=== PATIENT | female | born 1980 | race Caucasian/White ===

== ENCOUNTER 2016-07-29 13:09 | Emergency (ER) | payer BC ==
[2016-07-29 14:15] LABS: Hematocrit 36 % (35-47); Hemoglobin 11.2 g/dl (12.0-16.0); Mean Corpuscular HGB Conc 31 g/dl (31-36); Mean Corpuscular Hemoglobin 24 pg (27-31); Mean Corpuscular Volume 77 fL (80-97); Mean Platelet Volume 9 um3 (7.4-10.4); Red Cell Distribution Width 16 % (10.5-15); White Blood Count 10.7 10^3/ul (3.5-10.8)
[2016-07-29 14:30] LABS: Albumin 4.2 g/dL (3.2-5.2); BUN/Creatinine Ratio 10.9 (8-20); Calcium 9.2 mg/dL (8.6-10.3); Globulin 2.6 g/dL (2-4); Potassium 3.7 mmol/L (3.5-5.0); Total Bilirubin 0.5 mg/dL (0.2-1.0); Total Protein 6.8 g/dL (6.4-8.9)
[2016-07-29] MEDS ORDERED: Iohexol 350* (CONTRAST) 500 ML MDV IV ONE (14:54)
--- NOTE | 2016-07-29 15:31 | RAD ---
INDICATION: Mid chest pain. History of PE. Noncompliant with medical therapy. COMPARISON: No prior exams available for comparison on the [facility] PACS. TECHNIQUE: Multidetector CT images were obtained from the lung apices to the upper abdomen with 82 mL Omnipaque 350 IV contrast. Pulmonary angiogram protocol. Multiplanar reformation including with maximum intensity projection. REPORT: Minimal bibasilar atelectasis. Negative for pleural effusion or pneumothorax. Upper normal heart size. Negative for pericardial effusion. Normal diameter thoracic aorta. Motion artifact mildly degrades image quality for the CT pulmonary angiogram. No filling defects are identified from the main to the subsegmental pulmonary arteries to indicate presence of a pulmonary embolism. Images through the upper abdomen are remarkable for prior cholecystectomy. Negative for focal osseous lesions. IMPRESSION: Mildly limited CT pulmonary angiogram due to motion artifact without compelling evidence for pulmonary embolism. Minimal bibasilar subsegmental atelectasis.
[2016-07-29 16:11] LABS: Urine Bilirubin Negative (Negative); Urine Glucose Negative (Negative); Urine Nitrite Negative (Negative)
[2016-07-29 18:10] VITALS: BP 113/78
--- NOTE | 2016-07-31 00:56 | ED ---
Gianluca Mobley Alok, scribed for Lorenzo Sanders MD on 07/29/16 at 1350 . HPI Chest Pain - HPI Summary HPI Summary: 35F presents with "light chest discomfort" at the mid-sternal since 0400, constant though waxing and waning in intensity. Pt states that this pain woke her up last night, and was initially thought to be an anxiety attack until it did not subside on its own. Pt also states that her pain feels different than GERD. Currently her pain is at a 6/10 in severity. Pt tried taking ibuprofen at 0930 with no alleviation. Pt states her chest discomforts worsens when in supine position and improves when sitting up. Pt also notes slight SOB described as "extra work" to inhale. Pt also notes a back discomfort earlier. Pt denies fever, chills, or diaphoresis. Pt denies cough, throat burning, throat pain, or sour taste in her mouth. Pt denies leg pain, arm pain, or shoulder pain. Pt denies vomit. PMHx includes h/o PE 2011 which she was prescribed Coumadin and then switched to Xarelto. Pt has not taken her Xarelto for the past 6 months. PMHx also includes h/o anxiety for which she takes 10mg Lexapro and GERD for which she takes 40mg of protonics. Pt drinks ETOH occasionally had a 3-4 drinks of ETOH last night before her CP as well as pineapple juice which may have contributed. - History of Current Complaint Chief Complaint: EDChestPainROMI Time Seen by Provider: 07/29/16 13:17 Hx Obtained From: Patient Onset/Duration: Started Hours Ago, Atraumatic, Still Present Time of Onset: 04:00 Timing: Constant Initial Severity: Moderate Current Severity: Moderate Pain Intensity: 6 Pain Scale Used: 0-10 Numeric Chest Pain Location: Discrete at:, Mid Sternal Chest Pain Radiates: No Character: Other: - "slight chest discomfort" Aggravating Factor(s): Position - Supine Alleviating Factor(s): Position - Sitting up Associated Signs and Symptoms: Positive: Chest Pain, Shortness of Breath - slight, Back Pain - subsided since. Negative: Fever, Cough, Vomiting - Allergy/Home Medications Allergies/Adverse Reactions: Allergies Allergy/AdvReac Type Severity Reaction Status Date / Time No Known Allergies Allergy Verified 05/10/14 09:48 PMH/Surg Hx/FS Hx/Imm Hx Respiratory History: Reports: Hx Pulmonary Embolism GI History: Reports: Hx Gastroesophageal Reflux Disease Psychiatric History: Reports: Hx Anxiety - Surgical History Surgery Procedure, Year, and Place: CHOLECYSTECTOMY 01/01, CSECTION X 3 Infectious Disease History: No Infectious Disease History: Denies: Traveled Outside the [place] in Last 30 Days - Family History Known Family History: Positive: Hypertension Negative: Cardiac Disease - Social History Occupation: Employed Full-time Lives: With Family Alcohol Use: Rare Hx Substance Use: No Substance Use Type: Reports: None Hx Tobacco Use: No Smoking Status (MU): Never Smoked Tobacco Review of Systems Negative: Fever, Chills Negative: Erythema Negative: Sore Throat, Other - Sour taste in mouth Positive: Chest Pain Positive: Shortness Of Breath. Negative: Cough Negative: Abdominal Pain, Vomiting, Nausea Negative: dysuria, hematuria Positive: Other - back discomfort. Negative: Myalgia, Edema Neurological: Other - Negative: Dizziness Negative: Headache All Other Systems Reviewed And Are Negative: Yes Physical Exam - Summary Physical Exam Summary: [Female nurse Kvng present for exam] Constitutional: Well-developed, Well-nourished, Alert. (-) Distressed Skin: Warm, Dry HENT: Normocephalic; Atraumatic Eyes: Conjunctiva normal Neck: Musculoskeletal ROM normal neck. (-) JVD, (-) Stridor, (-) Tracheal deviation Cardio: Rhythm regular, rate normal, Heart sounds normal; Intact distal pulses; The pedal pulses are 2+ and symmetric. Radial pulses are 2+ and symmetric. (-) Murmur Pulmonary/Chest wall: Effort normal. (-) Respiratory distress, (-) Wheezes, (-) Rales. Tenderness at inferior aspect of the sternal. No costo-chondral tenderness. Chest pain exactly reproducible with palpation Abd: Soft, (-) Tenderness, (-) Distension, (-) Guarding, (-) Rebound Musculoskeletal: (-) Edema Lymph: (-) Cervical adenopathy Neuro: Alert, Oriented x3 Psych: Mood and affect Normal Triage Information Reviewed: Yes Vital Signs On Initial Exam: Initial Vitals Temp Pulse Resp BP Pulse Ox 98.3 F 73 20 130/85 100 07/29/16 13:10 07/29/16 13:10 07/29/16 13:10 07/29/16 13:10 07/29/16 13:10 Vital Signs Reviewed: Yes Diagnostics - Vital Signs Vital Signs Temp Pulse Resp BP Pulse Ox 07/29/16 13:13 98.3 F 72 20 130/85 98 07/29/16 13:10 98.3 F 73 20 130/85 100 - Laboratory Result Diagrams: 07/29/16 14:00 07/29/16 14:00 Lab Statement: Any lab studies that have been ordered have been reviewed, and results considered in the medical decision making process. - CT Chest/Thorax CTA CT Interpretation: Positive (See Comments) - IMPRESSION: Mildly limited CT pulmonary angiogram due to motion artifact without compelling evidence for pulmonary embolism. Minimal bibasilar subsegmental atelectasis. CT Interpretation Completed By: Radiologist - EKG 1321 Cardiac Rate: NL - 65 bpm EKG Rhythm: Sinus Rhythm EKG Interpretation: NO STEMI Re-Evaluation - Re-Evaluation First Eval Re-Evaluation Time: 16:12 Change: Improved Comment: Discussed pt lab and test results. Pt chest pain has eased up somewhat. Chest Pain Course/Dx - Diagnoses Provider Diagnoses: Chest pain, unspecified Discharge - Discharge Plan Condition: Stable Disposition: HOME Patient Education Materials: Chest Pain (ED) Referrals: Jessica Maxwell MD [Primary Care Provider] - 2 Days Additional Instructions: Please return to the emergency department for any new worsening or persisting symptoms. The documentation as recorded by the Gianluca kearns Alok accurately reflects the service I personally performed and the decisions made by , Lorenzo Sanders MD.
== END 2016-07-29 18:24 | disposition home or self-care (01) ==
LOC: ED 13:09
DX: R07.9 Chest pain, unspecified (principal); R06.02 Shortness of breath; M54.9 Dorsalgia, unspecified
CPT/HCPCS: 36415; 71275; 80053; 81003; 83605; 84484; 85025; 85610; 85730; 93005; 99283; Q9967

== ENCOUNTER 2018-08-14 21:34 | Emergency (ER) | payer SELFPAY ==
[2018-08-14 21:44] VITALS: BP 150/82
[2018-08-14] MEDS ORDERED: Polymyx/Trimethoprim OPTH* 10 ML BTL LEFT EYE ONE (21:50)
--- NOTE | 2018-08-14 21:56 | UC ---
Eye Complaint HPI - HPI Summary HPI Summary: 37 yo female with left eye redness and discharge x 1 day no pain or photophobia - History of Current Complaint Chief Complaint: UCEye Stated Complaint: LEFT EYE ISSUE Time Seen by Provider: 08/14/18 21:42 Hx Obtained From: Patient Hx Last Menstrual Period: 08/02/18 Onset/Duration: Gradual Onset Timing: Constant Severity Initially: Mild Severity Currently: Mild Pain Intensity: 0 Pain Scale Used: 0-10 Numeric Location of Injury: Conjunctiva Aggravating Factor(s): Nothing Alleviating Factor(s): Nothing Associated Signs And Symptoms: Positive: Drainage (Purulent) - Risk Factors Penetrating Injury Risk Factor: Negative Globe Rupture Risk Factors: Negative Acute Glaucoma Risk Factors: Negative Optic Artery Occlusion Risk Factors: Negative - Allergies/Home Medications Allergies/Adverse Reactions: Allergies Allergy/AdvReac Type Severity Reaction Status Date / Time No Known Allergies Allergy Verified 08/14/18 21:44 Home Medications: Home Medications Levothyroxine Sodium 50 mcg PO DAILY 08/14/18 [History Confirmed 08/14/18] PMH/Surg Hx/FS Hx/Imm Hx Previously Healthy: Yes - Surgical History Surgical History: Yes Surgery Procedure, Year, and Place: CHOLECYSTECTOMY 01/01, CSECTION X 3 - Family History Known Family History: Positive: Hypertension Negative: Cardiac Disease - Social History Alcohol Use: Rare Substance Use Type: None Smoking Status (MU): Never Smoked Tobacco Review of Systems All Other Systems Reviewed And Are Negative: Yes Constitutional: Positive: Negative Skin: Positive: Negative Eyes: Positive: Drainage, Eye Redness ENT: Positive: Negative Respiratory: Positive: Negative Cardiovascular: Positive: Negative Gastrointestinal: Positive: Negative Genitourinary: Positive: Negative Motor: Positive: Negative Neurovascular: Positive: Negative Musculoskeletal: Positive: Negative Neurological: Positive: Negative Psychological: Positive: Negative Physical Exam Triage Information Reviewed: Yes Appearance: Well-Appearing, No Pain Distress, Well-Nourished Vital Signs: Initial Vital Signs Temp 97.9 F 08/14/18 21:42 Pulse 72 08/14/18 21:42 Resp 20 08/14/18 21:42 BP 150/82 08/14/18 21:42 Pulse Ox 100 08/14/18 21:42 Vital Signs Reviewed: Yes Eyes: Positive: Conjunctiva Inflamed - L, Discharge - L ENT: Positive: Hearing grossly normal. Negative: Nasal congestion, Nasal drainage, Trismus, Muffled voice, Hoarse voice Neck: Positive: Supple, Nontender, No Lymphadenopathy Respiratory: Positive: Lungs clear, Normal breath sounds, No respiratory distress, No accessory muscle use Cardiovascular: Positive: RRR, No Murmur Musculoskeletal: Positive: ROM Intact, No Edema Neurological: Positive: Alert Psychological Exam: Normal Skin Exam: Normal Eye Complaint Course/Dx - Differential Dx/Diagnosis Provider Diagnosis: Conjunctivitis, right eye Discharge - Sign-Out/Discharge Documenting (check all that apply): Patient Departure All imaging exams completed and their final reports reviewed: No Studies - Discharge Plan Condition: Stable Disposition: HOME Patient Education Materials: Conjunctivitis (ED) Referrals: Jocelynn Fan NP [Primary Care Provider] - 4 Days (if not better) - Billing Disposition and Condition Condition: STABLE Disposition: Home
== END 2018-08-14 22:04 | disposition home or self-care (01) ==
LOC: UCCORT 21:34
DX: H10.9 Unspecified conjunctivitis (principal)
CPT/HCPCS: 99212; G0463

== ENCOUNTER 2019-04-22 08:22 | Emergency (ER) | payer BC ==
[2019-04-22 08:45] VITALS: BP 152/102
--- NOTE | 2019-04-22 09:52 | UC ---
Abdominal Pain Female HPI - HPI Summary HPI Summary: 38 y/o female with 3 days hx of lower abdominal pain pain is cramping , 2 out of 10 , no radiation nothing makes it better or worse + diarrhea , nausea and vomiting, no dysuria, no frequency no flank pain , no fever, + chills - History of Current Complaint Chief Complaint: UCGI Stated Complaint: NAUSEA,VOMITING,DIARRHEA Time Seen by Provider: 04/22/19 08:55 Hx Obtained From: Patient Hx Last Menstrual Period: 08/02/18 Onset/Duration: Gradual Onset, Lasting Days - 3, Still Present Severity Initially: Moderate Severity Currently: Moderate Pain Intensity: 1 Pain Scale Used: 0-10 Numeric Radiates: No Character: Cramping Aggravating Factor(s): Nothing Alleviating Factor(s): Nothing Associated Signs and Symptoms: Positive: Nausea, Vomiting, Diarrhea. Negative: Fever, Cough, Back Pain, Constipation, Blood in Stool, Urinary Symptoms, Decreased Appetite, Vaginal Bleeding Allergies/Adverse Reactions: Allergies Allergy/AdvReac Type Severity Reaction Status Date / Time No Known Allergies Allergy Verified 04/22/19 08:39 Home Medications: Home Medications Levothyroxine Sodium 50 mcg PO DAILY 08/14/18 [History Confirmed 04/22/19] Escitalopram * [Lexapro *] 20 mg PO DAILY 04/22/19 [History Confirmed 04/22/19] Ibuprofen TAB* [Advil TAB*] 600 mg PO Q6H PRN 04/22/19 [History Confirmed ] Ondansetron ODT TAB* [Zofran 4 MG Odt TAB*] 8 mg PO Q8H PRN #6 tab.odt 04/22/19 [Rx] Sulfamethox/Trimethoprim DS* [Bactrim DS 800/160 TAB*] 1 tab PO BID #14 tab 06/07 [Rx] PMH/Surg Hx/FS Hx/Imm Hx Endocrine History: Hypothyroidism Psychological History: Anxiety - Surgical History Surgical History: Yes Surgery Procedure, Year, and Place: Hysterectomy, 2018, ; Cholecystectomy, 2013, ; C-sections x 3 - Family History Known Family History: Positive: Hypertension Negative: Cardiac Disease - Social History Alcohol Use: Rare Substance Use Type: None Smoking Status (MU): Never Smoked Tobacco Review of Systems All Other Systems Reviewed And Are Negative: Yes Is Patient Immunocompromised?: No Physical Exam Triage Information Reviewed: Yes Appearance: Well-Appearing, No Pain Distress, Well-Nourished Vital Signs: Initial Vital Signs Temp 99.5 F 04/22/19 08:37 Pulse 78 04/22/19 08:37 Resp 18 04/22/19 08:37 BP 152/102 04/22/19 08:37 Pulse Ox 99 04/22/19 08:37 Vital Signs Reviewed: Yes Eye Exam: Normal Eyes: Positive: Conjunctiva Clear ENT: Positive: Normal ENT inspection, Hearing grossly normal, Pharynx normal Neck: Positive: Supple, Nontender, No Lymphadenopathy Respiratory Exam: Normal Respiratory: Positive: Chest non-tender, Lungs clear, Normal breath sounds Cardiovascular: Positive: RRR, No Murmur, Pulses Normal Abdomen Description: Positive: Nontender, Soft. Negative: CVA Tenderness (R), CVA Tenderness (L), Distended, Guarding Bowel Sounds: Positive: Present Abd Pain Female Course/Dx - Differential Dx/Diagnosis Provider Diagnosis: UTI (urinary tract infection) Discharge ED - Sign-Out/Discharge Documenting (check all that apply): Patient Departure All imaging exams completed and their final reports reviewed: No Studies - Discharge Plan Condition: Stable Disposition: HOME Prescriptions: Ondansetron ODT TAB* [Zofran 4 MG Odt TAB*] 8 mg PO Q8H PRN #6 tab.odt PRN Reason: Nausea/Vomiting Sulfamethox/Trimethoprim DS* [Bactrim DS 800/160 TAB*] 1 tab PO BID #14 tab Patient Education Materials: Urinary Tract Infection in Women (DC) Forms: *Work Release Referrals: Jocelynn Fan NP [Primary Care Provider] - - Billing Disposition and Condition Condition: STABLE Disposition: Home
--- NOTE | 2019-04-25 09:07 | UC ---
- Progress Note Progress Note: + urine cx 04/22/19 - pt was given bactrim and cx is resistent + sensitive to multiple other abxs -treat w/ macrobid 100mgs po bid x 7 d - will be sent in -f/u w/ PCP or sooner if sx worsen, feverf, n.v -also needs BP repeat/follow up Course/Dx - Diagnoses Provider Diagnoses: UTI (urinary tract infection) Discharge ED - Sign-Out/Discharge Documenting (check all that apply): Post-Discharge Follow Up All imaging exams completed and their final reports reviewed: No Studies - Discharge Plan Condition: Stable Disposition: HOME Prescriptions: Ondansetron ODT TAB* [Zofran 4 MG Odt TAB*] 8 mg PO Q8H PRN #6 tab.odt PRN Reason: Nausea/Vomiting Sulfamethox/Trimethoprim DS* [Bactrim DS 800/160 TAB*] 1 tab PO BID #14 tab Patient Education Materials: Urinary Tract Infection in Women (DC) Forms: *Work Release Referrals: Jocelynn Fan NP [Primary Care Provider] - - Billing Disposition and Condition Condition: STABLE Disposition: Home
== END 2019-04-22 09:17 | disposition home or self-care (01) ==
LOC: UCCORT 08:22
DX: N39.0 Urinary tract infection, site not specified (principal); R19.7 Diarrhea, unspecified; R11.2 Nausea with vomiting, unspecified; E03.9 Hypothyroidism, unspecified; F41.9 Anxiety disorder, unspecified; Z79.890 Hormone replacement therapy; Z79.899 Other long term (current) drug therapy
CPT/HCPCS: 81003; 87077; 87086; 87186; 99212; G0463